=== PATIENT | male | born 1985 | race Caucasian/White ===

== ENCOUNTER 2017-07-20 20:03 | Inpatient (IN) | payer BC ==
[2017-07-20 21:22] VITALS: BMI 30.3
--- NOTE | 2017-07-20 21:36 | HP ---
COWS - Scale Resting Pulse: 1= DC 81-100 Sweatin=Flushed/Facial Moisture Restless Observation: 3= Extraneous Movement Pupil Size: 1= Pupils >than Normal Bone or Joint Aches: 1= Mild Discomfort Runny Nose/ Eye Tearin= Runny Nose/Eyes GI Upset > 30mins: 3= Vomiting/Diarrhea Tremor Observation: 2= Slight Tremor Visible Yawning Observation: 1= 1-2x During Session Anxiety or Irritability: 2=Irritable/Anxious Goose Flesh Skin: 3=Piloerection COWS Score: 21 CIWA Score - CIWA Score Nausea/Vomitin Muscle Tremors: 4-Moderate,w/Arms Extend Anxiety: 4-Mod. Anxious/Guarded Agitation: 4-Moderately Restless Paroxysmal Sweats: 3 Orientation: 0-Oriented Tacttile Disturbances: 1-Very Mild Itch/Numbness Auditory Disturbances: 0-None Visual Disturbances: 0-None Headache: 0-None Present CIWA-Ar Total Score: 19 Admission ROS BHS - HPI Chief Complaint: withdrawal symptoms Allergies/Adverse Reactions: Allergies Allergy/AdvReac Type Severity Reaction Status Date / Time No Known Allergies Allergy Verified 07/20/17 21:29 History of Present Illness: 32 yo male with history of Hep C, alcohol, opiod Benzo dependence. Last detox and rehab April 2017 at [facility]. Longest period of sobriety 3 months. Exam Limitations: No Limitations - Ebola screening Have you been sick,other than usual withdrawal symptoms: No - Review of Systems Constitutional: Chills, Loss of Appetite, Changes in sleep EENT: reports: Tearing, Other (reports uses dentures top and bottom) Respiratory: reports: No Symptoms reported Cardiac: reports: No Symptoms Reported GI: reports: Diarrhea, Nausea, Poor Appetite : reports: No Symptoms Reported Musculoskeletal: reports: Joint Pain, Muscle Pain Integumentary: reports: No Symptoms Reported Endocrine: reports: Excessive Sweating Hematology: reports: No Symptoms Reported Psychiatric: reports: Orientated x3, Anxious, Depressed Other Systems: Reviewed and Negative (Reports currently on Suboxone program and has not taken medication in a few days, unable to quantify # of days) Patient History - Patient Medical History Hx Anemia: No Hx Asthma: No Hx Chronic Obstructive Pulmonary Disease (COPD): No Hx Cancer: No Hx Cardiac Disorders: No Hx Congestive Heart Failure: No Hx Hypertension: No Hx Hypercholesterolemia: No Hx Pacemaker: No HX Cerebrovascular Accident: No Hx Seizures: No Hx Dementia: No Hx Diabetes: No Hx Gastrointestinal Disorders: No Hx Liver Disease: Yes (Hep C ) Hx Genitourinary Disorders: No Hx Sexually Transmitted Disorders: No Hx Renal Disease (ESRD): No Hx Thyroid Disease: No Hx Human Immunodeficiency Virus (HIV): No Hx Hepatitis C: Yes (Hep C dx 7 years ago ) Hx Depression: Yes Hx Suicide Attempt: No Hx Bipolar Disorder: No Hx Schizophrenia: No - Patient Surgical History Past Surgical History: No Hx Neurologic Surgery: No Hx Cataract Extraction: No Hx Cardiac Surgery: No Hx Lung Surgery: No Hx Breast Surgery: No Hx Breast Biopsy: No Hx Abdominal Surgery: No Hx Appendectomy: No Hx Cholecystectomy: No Hx Genitourinary Surgery: No Hx Section: No Hx Orthopedic Surgery: No Hx Hysterectomy: No Anesthesia Reaction: No - PPD History Previous Implant?: Yes Documented Results: Negative w/o proof PPD to be Administered?: Yes - Reproductive History Patient is a Female of Child Bearing Age (11 -55 yrs old): No - Smoking Cessation Smoking history: Current every day smoker Have you smoked in the past 12 months: Yes Aproximately how many cigarettes per day: 20 Cigars Per Day: 0 Initiated information on smoking cessation: Yes 'Breaking Loose' booklet given: 07/20/17 - Substance & Tx. History Hx Alcohol Use: Yes Hx Substance Use: Yes Substance Use Type: Alcohol, Heroin, Marijuana, Opiates, Tranquilizers Hx Substance Use Treatment: Yes (Neela Griggs Apr 2017) - Substances Abused Alcohol Route: Oral Frequency: Daily Amount used: 1/2 gallon [place] Age of first use: 16 Date of Last Use: 07/20/17 Alprazolam (Xanax) Route: Oral Frequency: 3-6 times per week Amount used: 4mg Age of first use: 18 Date of Last Use: 07/19/17 Heroin Route: Inhalation Frequency: Daily Amount used: 1 bundle Age of first use: 23 Date of Last Use: 07/18/17 Benzodiazepine (Klonopin) Route: Oral Frequency: 3-6 times per week Amount used: 4mg Age of first use: 23 Date of Last Use: 07/17/17 Oxycontin Route: Oral Frequency: No use in 30 days Amount used: 100mg / day Age of first use: 20 Date of Last Use: 07/18/17 Family Disease History - Family Disease History Family Disease History: Other: Father (timure and well ), Mother (mattyeve and well ) Admission Physical Exam [facility] - Vital Signs Vital Signs: Vital Signs - 24 hr 07/20/17 21:20 Temperature 96.6 F L Pulse Rate 89 Respiratory 19 Rate Blood Pressure 123/79 - Physical General Appearance: Yes: Irritable, Anxious HEENTM: Yes: Hearing grossly Normal, Normal ENT Inspection, Normocephalic, Normal Voice, SARAH, Pharynx Normal Respiratory: Yes: Within Normal Limits, Chest Non-Tender, Lungs Clear, Normal Breath Sounds, No Respiratory Distress, No Accessory Muscle Use Neck: Yes: Within Normal Limits, No masses,lesions,Nodules, Trachea in good position Breast: Yes: Breast Exam Deferred Cardiology: Yes: Regular Rhythm, Regular Rate, S1, S2 Abdominal: Yes: Normal Bowel Sounds, Non Tender, Flat, Soft Genitourinary: Yes: Within Normal Limits Musculoskeletal: Yes: full range of Motion, Gait Steady, Pelvis Stable Extremities: Yes: Normal Capillary Refill, Normal Inspection, Normal Range of Motion, Non-Tender 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 [employer] : Reference #: [id number] last dispense 07/08/17 delroy: 20 days Tyler Navarro MD. - Diagnostic (1) Nicotine dependence Current Visit: Yes Status: Acute Qualifiers: Nicotine product type: cigarettes (2) Opioid dependence on agonist therapy Current Visit: Yes Status: Acute (3) Opioid dependence with withdrawal Current Visit: Yes Status: Acute (4) Alcohol dependence with uncomplicated withdrawal Current Visit: Yes Status: Acute (5) Sedative, hypnotic or anxiolytic dependence with withdrawal, uncomplicated Current Visit: Yes Status: Acute (6) Anxious mood Current Visit: Yes Status: Acute (7) Depressed mood Current Visit: Yes Status: Acute Cleared for Admission [facility] - Detox or Rehab [facility] Level of Care: Medically Managed Detox Regimen/Protocol: Valium (Reports on Suboxone program, did not bring proof , pending verification ) BHS Breath Alcohol Content Breath Alcohol Content: 0 Urine Drug Screen - Results Drug Screen Negative: No Urine Drug Screen Results: OPI-Opiates, BZO-Benzodiazepines, TCA-Tricyclic Antidepress
[2017-07-20] MEDS ORDERED: MENTHOL/PHENOL 1 EACH UD MM PRN (21:51)
[2017-07-20] MEDS ORDERED: P-EPHED 60MG/TRIPROLIDI 2.5MG TABLET PO PRN (21:51)
[2017-07-20] MEDS ORDERED: diazePAM 5 MG TABLET PO PRN ×2 (21:51→22:21)
[2017-07-20] MEDS ORDERED: guaiFENesin/D-METHORPHAN HB 10 ML UNIT-DOSE CUPS PO PRN (21:51)
[2017-07-20] MEDS ORDERED: METHADONE HCL 10 MG TABLET (FOR DETOX USE ONLY) PO ONE ×2 (21:51→23:00)
[2017-07-20] MEDS ORDERED: IBUPROFEN 400 MG TABLET (FP) PO PRN (21:51)
[2017-07-20] MEDS ORDERED: ACETAMINOPHEN 325 MG TABLET (FP) PO PRN (21:51)
[2017-07-20] MEDS ORDERED: hydrOXYzine PAMOATE 50 MG CAPSULE (FP) PO PRN (21:51)
[2017-07-20] MEDS ORDERED: MAGNESIUM CITRATE 300 ML BOTTLE PO PRN (21:51)
[2017-07-20] MEDS ORDERED: MAGNESIUM HYDROX 2400MG/30ML ORAL SUSPENSION 30 ML CUP PO PRN (21:51)
[2017-07-20] MEDS ORDERED: LOPERAMIDE HCL 2 MG CAPSULE PO PRN (21:51)
[2017-07-20] MEDS ORDERED: diazePAM 5 MG TABLET PO ONE ×2 (21:51→22:30)
[2017-07-20] MEDS ORDERED: MAG HYDROX/AL HYDROX/SIMETH 30 ML UNIT-DOSE CUP PO PRN (21:51)
[2017-07-20] MEDS ORDERED: diazePAM 5 MG TABLET PO SCH ×2 (22:00)
[2017-07-20 23:06] LABS: URINE APPEARANCE TURBID; URINE BILIRUBIN NEGATIVE (NEGATIVE); URINE BLOOD NEGATIVE (NEGATIVE); URINE COLOR YELLOW; URINE GLUCOSE (UA) NEGATIVE (NEGATIVE); URINE KETONE NEGATIVE (NEGATIVE); URINE LEUK ESTERASE NEGATIVE (NEGATIVE); URINE NITRITE NEGATIVE (NEGATIVE); URINE PROTEIN NEGATIVE (NEGATIVE); URINE UROBILINOGEN NEGATIVE mg/dL (0.2-1.0)
[2017-07-20] MEDS: NICOTINE 21 MG/24 HOURS TOPICAL PATCH TD SCH (23:40)
[2017-07-20] MEDS: THIAMINE HCL 100 MG TABLET (FP) PO SCH (23:56)
[2017-07-21] MEDS ORDERED: METHADONE HCL 10 MG TABLET (FOR DETOX USE ONLY) PO ONE ×3 (00:05→23:00)
[2017-07-21] MEDS ORDERED: diazePAM 5 MG TABLET PO ONE (00:05)
--- NOTE | 2017-07-21 00:11 | PN ---
APRYL Progress Note Note: Patient on Suboxone and has not taken medication over "several days," dosage needs to be adjusted. Methadone and Valium to be initiated as per Dr. Grimes. Therapy regimen discussed with patient.
[2017-07-21] MEDS: diazePAM 5 MG TABLET PO SCH ×3 (07:00→15:37)
--- NOTE | 2017-07-21 09:53 | EKG ---
Test Reason : Blood Pressure : / mmHG Vent. Rate : 084 BPM Atrial Rate : 084 BPM P-R Int : 162 ms QRS Dur : 088 ms QT Int : 372 ms P-R-T Axes : 060 031 039 degrees QTc Int : 439 ms NORMAL SINUS RHYTHM NORMAL ECG NO PREVIOUS ECGS AVAILABLE Confirmed by KWAME SALEEM MD ([id number]) on 07/21/2017 9:53:02 AM Referred By: Confirmed By:KWAME SALEEM MD
--- NOTE | 2017-07-21 09:53 | PN ---
S CIWA - CIWA Score Nausea/Vomitin Muscle Tremors: 3 Anxiety: 3 Agitation: 3 Paroxysmal Sweats: 3 Orientation: 0-Oriented Tacttile Disturbances: 0-None Auditory Disturbances: 0-None Visual Disturbances: 0-None Headache: 0-None Present CIWA-Ar Total Score: 15 BHS COWS - Scale Resting Pulse: 1= [place] 81-100 Sweatin= Chills/Flushing Restless Observation: 1= Difficult to Sit Still Pupil Size: 1= Pupils >than Normal Bone or Joint Aches: 1= Mild Discomfort Runny Nose/ Eye Tearin= Nasal Congestion GI Upset > 30mins: 2= Nausea/Diarrhea Tremor Observation of Outstretched Hands: 2= Slight Tremor Visible Yawning Observation: 1= 1-2x During Session Anxiety or Irritability: 2=Irritable/Anxious Goose Flesh Skin: 3=Piloerection COWS Score: 16 S Progress Note (SOAP) Subjective: nausea, swets, interrupted sleep, anxiety, temors Objective: 07/21/17 09:52 Vital Signs - 24 hr 07/20/17 07/20/17 07/21/17 21:20 23:51 00:30 Temperature 96.6 F L 98.4 F Pulse Rate 89 94 H Respiratory 19 18 18 Rate Blood Pressure 123/79 121/70 07/21/17 07/21/17 07/21/17 03:30 06:52 09:26 Temperature 98.1 F 97.0 F L Pulse Rate 63 80 Respiratory 18 16 18 Rate Blood Pressure 115/66 115/76 Laboratory Tests 07/20/17 20:07 Urine Color Yellow Urine Appearance Turbid Urine pH 8.0 Ur Specific [place] 1.014 Urine Protein Negative Urine Glucose (UA) Negative Urine Ketones Negative Urine Blood Negative Urine Nitrite Negative Urine Bilirubin Negative Urine Urobilinogen Negative Ur Leukocyte Esterase Negative labs pending Assessment: 07/21/17 09:52 yessenia ortez [facility] detox, fluids, ambulation
[2017-07-21] MEDS ORDERED: METHADONE HCL 10 MG TABLET (FOR DETOX USE ONLY) PO SCH (10:00)
[2017-07-21] MEDS: PRENATAL VITAMINS W/ FOLIC ACID TABLET (FP) PO SCH ×2 (10:34→11:16)
[2017-07-21] MEDS: NICOTINE 21 MG/24 HOURS TOPICAL PATCH TD SCH (10:36)
[2017-07-21] MEDS: diazePAM 5 MG TABLET PO PRN ×3 (11:10→21:05)
[2017-07-21 12:04] LABS: HEMATOCRIT 41.9 % (35.4-49); HEMOGLOBIN 13.4 GM/dL (11.7-16.9); MCH 28.9 pg (25.7-33.7); MEAN CELL VOLUME 90.3 fl (80-96); MEAN PLT VOLUME 8.5 fl (7.5-11.1); PLATELET COUNT 403 K/MM3 (134-434); RBC 4.64 M/mm3 (4.00-5.60); RDW 12.8 % (11.9-15.9); WHITE BLOOD COUNT 9.9 K/mm3 (4.0-10.0)
[2017-07-21 12:07] LABS: ALBUMIN 3.1 g/dl (3.4-5.0); ANION GAP 5 (8-16); BILIRUBIN,TOTAL 0.2 mg/dL (0.2-1.0); BLOOD UREA NITROGEN 8 mg/dL (7-18); CALCIUM 8.6 mg/dL (8.5-10.1); CHLORIDE 107 mmol/L (98-107); CO2 31 mmol/L (21-32); CREATININE 0.8 mg/dL (0.7-1.3); GLUCOSE,RANDOM 105 mg/dL (74-106); POTASSIUM 4.3 mmol/L (3.5-5.1); SGOT/AST 8 U/L (15-37); SGPT/ALT 19 U/L (12-78); SODIUM 143 mmol/L (136-145); TOT PROT 6.1 g/dl (6.4-8.2)
[2017-07-21 12:08] LABS: ALK PHOS 79 U/L (45-117)
--- NOTE | 2017-07-21 12:10 | CONSULT ---
[facility] Psychiatric Consult - Data Date of interview: 07/21/17 Admission source: [facility] Identifying data: Pt. is a 32 year old male, single, father of one, unemployed and homeless. This is patient's [facility] to [facility]. Pt. admitted to for opiate, benzodiazepine, and alcohol dependence. Substance Abuse History: Following information confirmed with Mr. Jain: Smoking Cessation. Smoking history: Current every day smoker. Have you smoked in the past 12 months: Yes. Aproximately how many cigarettes per day: 20. Cigars Per Day: 0. Initiated information on smoking cessation: Yes. 'Breaking Loose' booklet given: 07/20/17. - Substance & Tx. History. Hx Alcohol Use: Yes. Hx Substance Use: Yes. Substance Use Type: Alcohol, Heroin, Marijuana, Opiates, Tranquilizers. Hx Substance Use Treatment: Yes (Neela Griggs Apr 2017). - Substances Abused. Alcohol. Route: Oral. Frequency: Daily. Amount used: 1/2 gallon [place]. Age of first use: 16. Date of Last Use: 07/20/17. * * Alprazolam (Xanax). Route: Oral. Frequency: 3-6 times per week. Amount used : 4mg. Age of first use: 18. Date of Last Use: 07/19/17. Heroin. Route: Inhalation. Frequency: Daily. Amount used: 1 bundle. Age of first use: 23. Date of Last Use: 07/18/17. Benzodiazepine (Klonopin). Route: Oral. Frequency: 3-6 times per week. Amount used: 4mg. Age of first use: 23. Date of Last Use: 07/17/17. Oxycontin. Route: Oral. Frequency: No use in 30 days. Amount used: 100mg / day. Age of first use: 20. Date of Last Use: 07/18 Medical History: Hep C Psychiatric History: Pt. denies h/o psychiatric hospitalization. States his PCP prescribes him wellbutrin 200mg SR BID and Doxepin 150 qhs. Pharmacy claims reviewed and verified. Reports last taking his medications yesterday. Pt. reports a diagnosis of MDD and RAVEN. Pt. denies h/o suicide attempt. Pt. denies suicidal and homicidal ideation. Physical/Sexual Abuse/Trauma History: Denies. Psychiatric Findings - Problem List ([place] 1, 2,3) (1) MDD (major depressive disorder) Current Visit: Yes Status: Chronic Comment: Self reports. (2) RAVEN (generalized anxiety disorder) Current Visit: Yes Status: Chronic Comment: Self reports. (3) Alcohol dependence with uncomplicated withdrawal Current Visit: Yes Status: Acute (4) Nicotine dependence Current Visit: Yes Status: Acute Qualifiers: Nicotine product type: cigarettes (5) Opioid dependence on agonist therapy Current Visit: Yes Status: Acute (6) Opioid dependence with withdrawal Current Visit: Yes Status: Acute (7) Sedative, hypnotic or anxiolytic dependence with withdrawal, uncomplicated Current Visit: Yes Status: Acute - Initial Treatment Plan Initial Treatment Plan: Psychoeducation provided. Detoxification in progress. Wellbutrin 150mg XL PO daily +Doxepin 150mg qhs ordered. Benefits and side effects discussed. Verbal consent given. Will continue to monitor.
[2017-07-22] MEDS: DOXEPIN HCL 50 MG CAPSULE PO SCH ×2 (00:05→22:17)
[2017-07-22] MEDS: diazePAM 5 MG TABLET PO SCH ×4 (00:05→22:17)
[2017-07-22] MEDS: THIAMINE HCL 100 MG TABLET (FP) PO SCH ×2 (00:06→22:17)
[2017-07-22] MEDS: PRENATAL VITAMINS W/ FOLIC ACID TABLET (FP) PO SCH (09:24)
[2017-07-22] MEDS: diazePAM 5 MG TABLET PO PRN ×3 (09:25→17:41)
[2017-07-22] MEDS: NICOTINE 21 MG/24 HOURS TOPICAL PATCH TD SCH (09:25)
[2017-07-22] MEDS ORDERED: diazePAM 5 MG TABLET PO SCH ×2 (10:00)
[2017-07-22] MEDS ORDERED: METHADONE HCL 5 MG TABLET (FOR DETOX USE ONLY) PO SCH (10:00)
[2017-07-22] MEDS ORDERED: METHADONE HCL 10 MG TABLET (FOR DETOX USE ONLY) PO SCH (10:00)
[2017-07-22] MEDS: NICOTINE POLACRILEX 2 MG GUM BC PRN (10:44)
--- NOTE | 2017-07-22 14:31 | PN ---
[facility] CIWA - CIWA Score Nausea/Vomitin Muscle Tremors: 3 Anxiety: 3 Agitation: 3 Paroxysmal Sweats: 3 Orientation: 0-Oriented Tacttile Disturbances: 0-None Auditory Disturbances: 0-None Visual Disturbances: 0-None Headache: 0-None Present CIWA-Ar Total Score: 15 S COWS - Scale Resting Pulse: 1= [place] 81-100 Sweatin=Flushed/Facial Moisture Restless Observation: 1= Difficult to Sit Still Pupil Size: 0= Normal to Room Light Bone or Joint Aches: 1= Mild Discomfort Runny Nose/ Eye Tearin= Nasal Congestion GI Upset > 30mins: 2= Nausea/Diarrhea Tremor Observation of Outstretched Hands: 2= Slight Tremor Visible Yawning Observation: 0= None Anxiety or Irritability: 2=Irritable/Anxious Goose Flesh Skin: 0=Smooth Skin COWS Score: 12 [facility] Progress Note (SOAP) Subjective: shakes sweats nausea Objective: 07/22/17 14:29 Vital Signs Temperature 97.7 F 07/22/17 11:19 Pulse Rate 91 H 07/22/17 11:19 Respiratory Rate 20 07/22/17 11:19 Blood Pressure 107/54 07/22/17 11:19 O2 Sat by Pulse Oximetry (%) Laboratory Last Values WBC 9.9 K/mm3 (4.0-10.0) 07/21/17 06:45 RBC 4.64 M/mm3 (4.00-5.60) 07/21/17 06:45 Hgb 13.4 GM/dL (11.7-16.9) 07/21/17 06:45 Hct 41.9 % (35.4-49) 07/21/17 06:45 MCV 90.3 fl (80-96) 07/21/17 06:45 MCH 28.9 pg (25.7-33.7) 07/21/17 06:45 MCHC 32.0 g/dl (32.0-35.9) 07/21/17 06:45 RDW 12.8 % (11.9-15.9) 07/21/17 06:45 Plt Count 403 K/MM3 (134-434) 07/21/17 06:45 MPV 8.5 fl (7.5-11.1) 07/21/17 06:45 Sodium 143 mmol/L (136-145) 07/21/17 06:45 Potassium 4.3 mmol/L (3.5-5.1) 07/21/17 06:45 Chloride 107 mmol/L (98-107) 07/21/17 06:45 Carbon Dioxide 31 mmol/L (21-32) 07/21/17 06:45 Anion Gap 5 (8-16) L 07/21/17 06:45 BUN 8 mg/dL (7-18) 07/21/17 06:45 Creatinine 0.8 mg/dL (0.7-1.3) 07/21/17 06:45 Creat Clearance w eGFR > 60 (>60) 07/21/17 06:45 Random Glucose 105 mg/dL (74-106) 07/21/17 06:45 Calcium 8.6 mg/dL (8.5-10.1) 07/21/17 06:45 Total Bilirubin 0.2 mg/dL (0.2-1.0) 07/21/17 06:45 AST 8 U/L (15-37) L 07/21/17 06:45 ALT 19 U/L (12-78) 07/21/17 06:45 Alkaline Phosphatase 79 U/L (45-117) 07/21/17 06:45 Total Protein 6.1 g/dl (6.4-8.2) L 07/21/17 06:45 Albumin 3.1 g/dl (3.4-5.0) L 07/21/17 06:45 Urine Color Yellow 07/20/17 20:07 Urine Appearance Turbid 07/20/17 20:07 Urine pH 8.0 (5.0-8.0) 07/20/17 20:07 Ur Specific [place] 1.014 (1.001-1.035) 07/20/17 20:07 Urine Protein Negative (NEGATIVE) 07/20/17 20:07 Urine Glucose (UA) Negative (NEGATIVE) 07/20/17 20:07 Urine Ketones Negative (NEGATIVE) 07/20/17 20:07 Urine Blood Negative (NEGATIVE) 07/20/17 20:07 Urine Nitrite Negative (NEGATIVE) 07/20/17 20:07 Urine Bilirubin Negative (NEGATIVE) 07/20/17 20:07 Urine Urobilinogen Negative mg/dL (0.2-1.0) 07/20/17 20:07 Ur Leukocyte Esterase Negative (NEGATIVE) 07/20/17 20:07 RPR Titer Nonreactive (NONREACTIVE) 07/21/17 06:45 HIV 1&2 Antibody Screen Negative 07/21/17 06:45 HIV P24 Antigen Negative 07/21/17 06:45 labs noted Assessment: 07/22/17 14:30 withdrawal sx Plan: continue detox
[2017-07-23] MEDS: diazePAM 5 MG TABLET PO PRN ×3 (09:22→17:23)
[2017-07-23] MEDS ORDERED: diazePAM 5 MG TABLET PO SCH (10:00)
[2017-07-23] MEDS ORDERED: METHADONE HCL 5 MG TABLET (FOR DETOX USE ONLY) PO SCH (10:00)
[2017-07-23] MEDS: PRENATAL VITAMINS W/ FOLIC ACID TABLET (FP) PO SCH (11:04)
[2017-07-23] MEDS: NICOTINE 21 MG/24 HOURS TOPICAL PATCH TD SCH (11:05)
--- NOTE | 2017-07-23 12:41 | PN ---
[facility]HS Progress Note (SOAP) Subjective: joint aches tremor sweat restlessness Objective: 07/23/17 12:40 Vital Signs Temperature 96.6 F L 07/23/17 10:00 Pulse Rate 92 H 07/23/17 10:00 Respiratory Rate 20 07/23/17 10:00 Blood Pressure 150/56 07/23/17 10:00 O2 Sat by Pulse Oximetry (%) Laboratory Last Values WBC 9.9 K/mm3 (4.0-10.0) 07/21/17 06:45 RBC 4.64 M/mm3 (4.00-5.60) 07/21/17 06:45 Hgb 13.4 GM/dL (11.7-16.9) 07/21/17 06:45 Hct 41.9 % (35.4-49) 07/21/17 06:45 MCV 90.3 fl (80-96) 07/21/17 06:45 MCH 28.9 pg (25.7-33.7) 07/21/17 06:45 MCHC 32.0 g/dl (32.0-35.9) 07/21/17 06:45 RDW 12.8 % (11.9-15.9) 07/21/17 06:45 Plt Count 403 K/MM3 (134-434) 07/21/17 06:45 MPV 8.5 fl (7.5-11.1) 07/21/17 06:45 Sodium 143 mmol/L (136-145) 07/21/17 06:45 Potassium 4.3 mmol/L (3.5-5.1) 07/21/17 06:45 Chloride 107 mmol/L (98-107) 07/21/17 06:45 Carbon Dioxide 31 mmol/L (21-32) 07/21/17 06:45 Anion Gap 5 (8-16) L 07/21/17 06:45 BUN 8 mg/dL (7-18) 07/21/17 06:45 Creatinine 0.8 mg/dL (0.7-1.3) 07/21/17 06:45 Creat Clearance w eGFR > 60 (>60) 07/21/17 06:45 Random Glucose 105 mg/dL (74-106) 07/21/17 06:45 Calcium 8.6 mg/dL (8.5-10.1) 07/21/17 06:45 Total Bilirubin 0.2 mg/dL (0.2-1.0) 07/21/17 06:45 AST 8 U/L (15-37) L 07/21/17 06:45 ALT 19 U/L (12-78) 07/21/17 06:45 Alkaline Phosphatase 79 U/L (45-117) 07/21/17 06:45 Total Protein 6.1 g/dl (6.4-8.2) L 07/21/17 06:45 Albumin 3.1 g/dl (3.4-5.0) L 07/21/17 06:45 Urine Color Yellow 07/20/17 20:07 Urine Appearance Turbid 07/20/17 20:07 Urine pH 8.0 (5.0-8.0) 07/20/17 20:07 Ur Specific [place] 1.014 (1.001-1.035) 07/20/17 20:07 Urine Protein Negative (NEGATIVE) 07/20/17 20:07 Urine Glucose (UA) Negative (NEGATIVE) 07/20/17 20:07 Urine Ketones Negative (NEGATIVE) 07/20/17 20:07 Urine Blood Negative (NEGATIVE) 07/20/17 20:07 Urine Nitrite Negative (NEGATIVE) 07/20/17 20:07 Urine Bilirubin Negative (NEGATIVE) 07/20/17 20:07 Urine Urobilinogen Negative mg/dL (0.2-1.0) 07/20/17 20:07 Ur Leukocyte Esterase Negative (NEGATIVE) 07/20/17 20:07 RPR Titer Nonreactive (NONREACTIVE) 07/21/17 06:45 HIV 1&2 Antibody Screen Negative 07/21/17 06:45 HIV P24 Antigen Negative 07/21/17 06:45 lab noted Assessment: 07/23/17 12:40 withdrawal sx Plan: continue detox
[2017-07-23] MEDS: NICOTINE POLACRILEX 2 MG GUM BC PRN (13:27)
[2017-07-23 17:24] VITALS: BP 119/66; PULSE 85; TEMP 97.7
--- NOTE | 2017-07-23 18:38 | DS ---
[facility] Detox Discharge Summary Admission Date: 07/20/17 Discharge Date: 07/23/17 - History Additional Comments: Was informed by MYA Gorman that pt stated he wanted to leave the unit for a job- related reason despite repeated education to the contrary. Pt did not wait for provider evaluation/education before departing floor. Pt was said to be A & O x 3 and in stable condition. Pertinent Past History: on subaxone treatment program - Physical Exam Results Vital Signs: Vital Signs Temperature 97.7 F 07/23/17 17:23 Pulse Rate 85 07/23/17 17:23 Respiratory Rate 18 07/23/17 17:23 Blood Pressure 119/66 07/23/17 17:23 O2 Sat by Pulse Oximetry (%) Pertinent Admission Physical Exam Findings: withdrawal sx - Medication Discharge Medications: Ambulatory Orders Bupropion HCl [Wellbutrin Sr] 400 mg PO DAILY 07/20/17 Doxepin HCl [[place] -] 150 mg PO BID 07/20/17 - Diagnosis (1) Alcohol dependence with uncomplicated withdrawal Current Visit: Yes Status: Acute (2) Nicotine dependence Current Visit: Yes Status: Acute Qualifiers: Nicotine product type: cigarettes (3) Opioid dependence on agonist therapy Current Visit: Yes Status: Acute - AMA Did Patient Leave Against Medical Advice: Yes
[2017-07-24] MEDS ORDERED: diazePAM 5 MG TABLET PO SCH ×2 (10:00)
[2017-07-24] MEDS ORDERED: METHADONE HCL 10 MG TABLET (FOR DETOX USE ONLY) PO SCH (10:00)
[2017-07-25] MEDS ORDERED: METHADONE HCL 5 MG TABLET (FOR DETOX USE ONLY) PO SCH (06:00)
[2017-07-25] MEDS ORDERED: diazePAM 5 MG TABLET PO SCH (10:00)
[2017-07-25] MEDS ORDERED: METHADONE HCL 10 MG TABLET (FOR DETOX USE ONLY) PO SCH (10:00)
[2017-07-26] MEDS ORDERED: METHADONE HCL 5 MG TABLET (FOR DETOX USE ONLY) PO SCH (06:00)
== END 2017-07-23 18:45 | disposition left against medical advice (07) | DRG 770 ==
LOC: YASAS 20:03 → Y6N 21:42
PROVIDERS: ADMIT Internal Medicine; ATTEND Internal Medicine
PROC: HZ2ZZZZ Detoxification Services for Substance Abuse Treatment (ICD-10-PCS; principal; 2017-07-20)
DX: F10.230 Alcohol dependence with withdrawal, uncomplicated (principal); F11.20 Opioid dependence, uncomplicated; F13.230 Sedative, hypnotic or anxiolytic dependence with withdrawal, uncomplicated; F17.210 Nicotine dependence, cigarettes, uncomplicated; F33.9 Major depressive disorder, recurrent, unspecified; F41.1 Generalized anxiety disorder; B18.2 Chronic viral hepatitis C
CPT/HCPCS: 36415; 80053; 81003; 85027; 86593; 87389; 93005; 93010